=== PATIENT | male | born 1960 | race Caucasian/White ===

== ENCOUNTER → 2021-10-30 | Outpatient (CLI) | payer OTHER ==
[~2021-10-30] MED LIST: GABA600T4 PO; LISI20TA33 PO
== END ==
LOC: M LABSMTC 09:28
PROVIDERS: ATTEND Anesthesiology
DX: Z01.812 Encounter for preprocedural laboratory examination (principal); Z20.822 Contact with and (suspected) exposure to COVID-19

== ENCOUNTER 2021-11-04 08:56 | Day surgery (SDC) | payer OTHER ==
[~2021-11-04] VITALS: Ht 190.5 cm; Wt 115.1 kg
[~2021-11-04 08:56] MED LIST changes: +NS 1,000 ML IV ONE
[2021-11-04] MEDS ORDERED: LIDOCAINE 2% 100MG/5ML SDV (FOR ANES.) As Ordered ONE (09:09)
[2021-11-04] MEDS ORDERED: propofoL 200 MG/20 ML VIAL As Ordered ONE ×5 (09:09→11:37)
== END 2021-11-04 12:20 | disposition home or self-care (01) ==
LOC: M OPP 08:56
PROVIDERS: ATTEND Surgery
DX: Z86.010 Personal history of colon polyps (principal); D12.8 Benign neoplasm of rectum; K63.5 Polyp of colon; K64.8 Other hemorrhoids; K57.30 Diverticulosis of large intestine without perforation or abscess without bleeding; Z87.891 Personal history of nicotine dependence; Z80.0 Family history of malignant neoplasm of digestive organs